=== PATIENT | female | born 1945 | race Caucasian/White ===

== ENCOUNTER → 2020-07-09 | Outpatient (CLI) | payer MEDICARE | LOC: COL.RAD 09:57 | DX: I63.9 Cerebral infarction, unspecified (principal) | CPT/HCPCS: A9585 ==

== ENCOUNTER → 2020-07-09 | Outpatient (CLI) | payer MEDICARE ==
[~2020-07-09] MED LIST: ARIMIDEX1 MG PO; ASPIRIN 32325 MG/TAB PO; COZAAR100 MG PO; CRANBERRY FRUI425 MG PO; HCTZ 25MG TAB25 MG PO; KLOR-CON 88 ME1 PO; LIPITOR 80MG80 MG PO; MASON NATURAL2000 IU PO; NATURAL E400 IU PO; NORVASC 5MG5 MG/TAB PO; PRILOSEC 20MG20 MG PO; PROBIOTIC BLEN1 EACH PO; PROZAC 20MG20 MG PO; VITAMINC1000TA
== END ==
LOC: COL.RAD 10:30
DX: Z20.822 Contact with and (suspected) exposure to COVID-19 (principal)

== ENCOUNTER 2020-08-21 08:17 | Outpatient (CLI) | payer MEDICARE ==
[~2020-08-21] VITALS: Ht 160.1 cm; Wt 71.0 kg
[2020-08-21] MEDS ORDERED: LIPITOR 80MG80 MG PO (09:03)
[2020-08-21] MEDS ORDERED: PRILOSEC 20MG20 MG PO (09:30)
[2020-08-21] MEDS ORDERED: HCTZ 25MG TAB25 MG PO (09:31)
[2020-08-21] MEDS ORDERED: COZAAR100 MG PO (09:34)
[2020-08-21] MEDS ORDERED: NORVASC 5MG5 MG/TAB PO (09:35)
[2020-08-21] MEDS ORDERED: ARIMIDEX1 MG PO (09:35)
[2020-08-21 09:36] LABS: HEMATOCRIT 39.6 % (37.0-47.0); HEMOGLOBIN 13.3 g/dl (12.5-16.0); MEAN CELL VOLUME 90 fl (80.0-100.0); MEAN CORPUSCULAR HEMOGLOBIN 30 pg (27.0-31.0); MEAN CORPUSCULAR HGB CONC 34 g/dl (33.0-37.0); MEAN PLATELET VOLUME 7.9 fl (7.4-10.4); PLATELET COUNT 388 K/mm3 (130-400); RED BLOOD COUNT 4.41 M/mm3 (4.10-5.30); REDCELL DISTRIBUTION WIDTH-CV 13.2 % (11.5-14.5)
[2020-08-21] MEDS ORDERED: PROZAC 20MG20 MG PO (09:36)
[2020-08-21] MEDS ORDERED: PROBIOTIC BLEN1 EACH PO (09:37)
[2020-08-21] MEDS ORDERED: VITAMINC1000TA (09:37)
[2020-08-21] MEDS ORDERED: MASON NATURAL2000 IU PO (09:38)
[2020-08-21] MEDS ORDERED: CRANBERRY FRUI425 MG PO (09:38)
[2020-08-21] MEDS ORDERED: ASPIRIN 32325 MG/TAB PO (09:41)
[2020-08-21] MEDS ORDERED: KLOR-CON 88 ME1 PO (09:41)
[2020-08-21] MEDS ORDERED: NATURAL E400 IU PO (09:42)
[2020-08-21 09:44] LABS: PROTHROMBIN TIME 11.6 SECONDS (9.7-12.8)
[2020-08-21 09:45] VITALS: BP 141/81; PULSE 77; TEMP 98.7
[2020-08-21 09:53] LABS: ALBUMIN 4.7 gm/dL (3.5-5.0); BILIRUBIN,TOTAL 0.6 mg/dL (0.0-1.0); CALCIUM 10.4 mg/dL (8.4-10.2); CREATININE, serum 0.81 (0.52-1.25); MAGNESIUM 1.6 mg/dL (1.6-2.3); POTASSIUM 3.3 mmol/L (3.4-5.0); TOTAL PROTEIN 7.9 gm/dL (6.4-8.2)
[2020-08-21 11:20] VITALS: BP 127/68; PULSE 75
--- NOTE | 2020-08-21 11:20 | NUR ---
report from Ester GALEAS, pt is awake and alert. HOB elevated 40 degrees, gauze dressing to chest is clean and dry. takes water, no c/o
[2020-08-21 11:35] VITALS: BP 124/84; PULSE 70
--- NOTE | 2020-08-21 11:35 | NUR ---
director geophysical laboratory team will return to finish programing and instructions with loop recorder. pt sits on side of bed, no dizziness, walked to b/r to void, gait steady.
[2020-08-21 11:50] VITALS: BP 136/64; PULSE 78
--- NOTE | 2020-08-21 11:50 | NUR ---
reviewed inst. with pt on john/loop, reviewed moderate sedaion inst. on activity, restrictions and followup appt. with verbal understanding. iv dc'd intact. pt up and dressed in room.
--- NOTE | 2020-08-21 12:30 | NUR ---
collaborative teacher finished with inst. and video, pt waits for ride in room. pt discharged via w/c to car with all supplies at 1300
== END 2020-08-21 13:00 | disposition home or self-care (01) ==
LOC: COL.RAD 08:17
PROVIDERS: Internal Medicine Adult Congenital Heart Disease
DX: I63.9 Cerebral infarction, unspecified (principal); I08.1 Rheumatic disorders of both mitral and tricuspid valves; I70.0 Atherosclerosis of aorta; Z86.73 Personal history of transient ischemic attack (TIA), and cerebral infarction without residual deficits
CPT/HCPCS: C1764; J2704